=== PATIENT | male | born 1985 | race Caucasian/White ===

== ENCOUNTER 2022-10-28 12:11 | Emergency (ER) | payer BC ==
[2022-10-28] MEDS ORDERED: Acetaminophen 500 MG Tab PO ONE (14:14)
[2022-10-28] MEDS ORDERED: traMADol 50 MG Tab PO ONE (14:15)
== END 2022-10-28 14:30 | disposition home or self-care (01) ==
LOC: DL.ED 12:11
DX: M17.32 Unilateral post-traumatic osteoarthritis, left knee (principal); I10 Essential (primary) hypertension; Z88.8 Allergy status to other drugs, medicaments and biological substances; Z86.16 Personal history of COVID-19
CPT/HCPCS: 99283; A9270-GY